=== PATIENT | male | born 1955 | race Caucasian/White ===

== ENCOUNTER 2017-12-15 18:44 | Emergency (ER) | payer BC ==
[2017-12-15 18:51] VITALS: BP 130/69
[2017-12-15] MEDS ORDERED: Diphtheria,Pertussis(Acell),Tetanus Vaccine 0.5 ML Syringe IM ONE (19:07)
--- NOTE | 2017-12-15 19:16 | EDM.PDOC ---
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) Location: Reports: Other (LEFT elbow) Quality: Reports: Ache, Throbbing Severity: Mild Associated Symptoms: Reports: No Other Symptoms Left Elbow Pain Score (Numeric/FACES): 2 - Related Data Allergies Allergy/AdvReac Type Severity Reaction Status Date / Time No Known Allergies Allergy Verified 12/15/17 18:50 Home Meds: Home Meds Allopurinol [Zyloprim] 300 mg PO DAILY 05/16/15 [History] Simvastatin [Zocor] 10 mg PO DAILY 04/08/17 [History] Aspirin [Halfprin] 81 mg PO DAILY 12/15/17 [History] Past Medical History Cardiovascular History: Reports: High Cholesterol Musculoskeletal History: Reports: Gout Social & Family History - Tobacco Use Smoking Status *Q: Never Smoker - Living Situation & Occupation Living situation: Reports: Occupation: Other Review of Systems - Review of Systems Review Of Systems: See Below Constitutional: Reports: No Symptoms Musculoskeletal: Reports: Other (Patient reports a metal gate struck his LEFT elbow causing an abrasion and mild pain. He denies other injuries or concerns.) ED EXAM, GENERAL - Physical Exam Exam: See Below General Appearance: Alert, WD/WN, No Apparent Distress Respiratory/Chest: No Respiratory Distress, No Accessory Muscle Use Cardiovascular: Normal Peripheral Pulses, Regular Rate, Rhythm Extremities: Other (There is a small abrasion on the posterior elbow with associated soft tissue swelling. Pulse + 2 distally. Strength is preserved on flexion and extension against resistance. There is no deformity, crepitis, other significant signs of gross trauma. No wrist or elbow pain. MSK otherwise unremarkable.) Course - Vital Signs Last Recorded V/S: Last Vital Signs Temp 36.9 C 12/15/17 18:44 Pulse 83 12/15/17 18:44 Resp 20 12/15/17 18:44 BP 130/69 12/15/17 18:44 Pulse Ox 96 12/15/17 18:44 - Orders/Labs/Meds Orders: Active Orders 24 hr Category Date Time Status Vaccines to be Administered [RC] PER UNIT ROUTINE Care 12/15/17 19:07 Active Elbow Min 3V Lt [CR] Stat Exams 12/15/17 18:49 Ordered Meds: Medications Discontinued Medications Generic Name Dose Route Start Last Admin Trade Name Eliz PRN Reason Stop Dose Admin Diphtheria/Tetanus/Acell Pertussis 0.5 ml 12/15/17 19:07 Adacel IM 12/15/17 19:08 .ONCE ONE Departure - Departure Time of Disposition: 19:15 Disposition: Home, Self-Care 01 Clinical Impression: Elbow pain, left - Discharge Information Instructions: Joint Pain, [id number], Cryotherapy, Heat Therapy, Musculoskeletal Pain - My Orders Last 24 Hours: My Active Orders 12/15/17 18:49 Elbow Min 3V Lt [CR] Stat 12/15/17 19:07 Vaccines to be Administered [RC] PER UNIT ROUTINE - Assessment/Plan Last 24 Hours: My Active Orders 12/15/17 18:49 Elbow Min 3V Lt [CR] Stat 12/15/17 19:07 Vaccines to be Administered [RC] PER UNIT ROUTINE
== END 2017-12-15 19:20 | disposition home or self-care (01) ==
LOC: CC.ED 18:44
DX: M25.522 Pain in left elbow (principal); E78.00 Pure hypercholesterolemia, unspecified; Z23 Encounter for immunization; Z79.82 Long term (current) use of aspirin; Z79.899 Other long term (current) drug therapy
CPT/HCPCS: 73080-LT; 90471; 90715; 99283

== ENCOUNTER 2021-06-25 17:52 | Emergency (ER) | payer MEDICARE, BC ==
[2021-06-25 18:09] VITALS: BP 127/87; PULSE 79
[2021-06-25] MEDS ORDERED: Take Home: Codeine/Promethazine 10-6.25 MG/5 ML Syrup 5 ML, 2 Cup Pack PO ONE (18:17)
--- NOTE | 2021-06-26 10:50 | EDM.PDOC ---
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 He denies fevers, sputum, body aches, headache, sinus congestion, ear pain or shortness of breath. He has been sucking on cough drops and his suggested cold medications that he picked up . He is fully vaccinated against covid 19 with his booster on 05/13/21. His was asked to wait in the vehicle per hospital rules for covid rule out. Patient states he has a remote history of ' bronchitis or pneumonia" but never hospitalized for it. Is not a smoker, no lung disease. he is here for something better for cough and wondering if he needs antibiotics Onset Date: 06/24/21 Duration: Intermittent - Related Data Allergies Allergy/AdvReac Type Severity Reaction Status Date / Time No Known Allergies Allergy Verified 12/15/17 18:50 Home Meds: Home Meds allopurinoL [Zyloprim] 300 mg PO DAILY 05/16/15 [History] Simvastatin [Zocor] 10 mg PO DAILY 04/08/17 [History] Aspirin [Halfprin] 81 mg PO DAILY 12/15/17 [History] Benzonatate [Tessalon Perles] 100 mg PO TID PRN #30 cap 06/25/21 [Rx] Past Medical History Cardiovascular History: Reports: High Cholesterol Musculoskeletal History: Reports: Gout Social & Family History - Tobacco Use Tobacco Use Status *Q: Never Tobacco User - Caffeine Use Caffeine Use: Reports: Coffee - Recreational Drug Use Recreational Drug Use: No - Living Situation & Occupation Living situation: Reports: Occupation: Other ED ROS GENERAL - Review of Systems Review Of Systems: See Below Constitutional: Denies: Fever, Chills, Malaise, Weakness, Fatigue, Decreased Appetite HEENT: Reports: Other (no throat pain but ' tickle", swallows fine). Denies: Ear Discharge, Ear Pain, Nose Pain, Rhinitis, Sinus Problem, Throat Pain, Throat Swelling Respiratory: Reports: Cough. Denies: Shortness of Breath, Wheezing, Pleuritic Chest Pain Cardiovascular: Denies: Chest Pain, Dyspnea on Exertion, Edema, Lightheadedness Endocrine: Reports: No Symptoms GI/Abdominal: Reports: No Symptoms. Denies: Abdominal Pain, Black Stool, Bloody Stool, Constipation, Diarrhea : Reports: No Symptoms Musculoskeletal: Reports: No Symptoms. Denies: Muscle Pain Skin: Reports: No Symptoms Neurological: Reports: No Symptoms ED EXAM, GENERAL - Physical Exam Exam: See Below Exam Limited By: No Limitations General Appearance: Alert, WD/WN, No Apparent Distress Eye Exam: Bilateral Eye: EOMI, Normal Inspection, PERRL Ears: Normal External Exam Nose: Normal Inspection, Normal Mucosa Throat/Mouth: Normal Inspection, Normal Lips, Normal Teeth, Normal Voice, No Airway Compromise Head: Atraumatic Neck: Normal Inspection, Supple, Non-Tender, Full Range of Motion Respiratory/Chest: No Respiratory Distress, Lungs Clear, Normal Breath Sounds, No Accessory Muscle Use, Chest Non-Tender, Decreased Breath Sounds (right base minimally) Cardiovascular: Normal Peripheral Pulses, Regular Rate, Rhythm, No Edema GI/Abdominal: Normal Bowel Sounds Back Exam: Normal Inspection Extremities: Normal Inspection, Normal Range of Motion, Non-Tender, No Pedal Edema Neurological: Alert, Oriented, CN II-XII Intact Psychiatric: Normal Affect Course - Vital Signs Last Recorded V/S: Last Vital Signs Temp 36.5 C 06/25/21 17:55 Pulse 79 06/25/21 17:55 Resp 20 06/25/21 17:55 BP 127/87 06/25/21 17:55 Pulse Ox 95 06/25/21 17:55 - Orders/Labs/Meds Labs: Laboratory Tests 06/25/21 Range/Units 18:08 SARS CoV-2 RNA Rapid ELENI Negative (NEGATIVE) Meds: Medications Discontinued Medications Generic Name Dose Route Start Last Admin Trade Name Freq PRN Reason Stop Dose Admin Promethazine HCl/Codeine 2 packet 06/25/21 18:17 06/25/21 18:37 Take Home: Codeine/Promethazine 10-6.25 Mg/5 Ml Syrup 5 Ml, 2 Cup Pack PO 06/25/21 18:18 2 packet ONETIME ONE Administration - Re-Assessments/Exams Free Text/Narrative Re-Assessment/Exam: 06/26/21 10:52 discussion with the patient with normal vital signs, no tachypnea, no tachycardia, no fever and normal O2 sats with 36 hours of illness that is was highly unlikely he had a bacterial pneumonia that needed antibiotics. he was educated on viral URI, advised to closely follow his symptoms and if they worsen over the weekend to return tot he ED. otherwise if they persist, around day 5- 7 of symptoms he could be seen by PCP, retested for covid 19 given the rise of the new variant in fully vaccinated people and get a chest x-ray. 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 Advised to take vit c, d and zinc. note, his did call after he was discharged and discussed her disappointment with not being allowed in the facility. I explained the facility rules in a covid possible person. she then voiced her concern that he did not get an antibiotic. I did explain the same documented medical decision making with her. she stated she was going to text her local provider. I offered them return to the Ed at anytime. Departure - Departure Time of Disposition: 18:50 Disposition: Home, Self-Care 01 Condition: Good Clinical Impression: URI (upper respiratory infection), Cough - Discharge Information *PRESCRIPTION DRUG MONITORING PROGRAM REVIEWED*: Not Applicable *COPY OF PRESCRIPTION DRUG MONITORING REPORT IN PATIENT NASH: Not Applicable Prescriptions: Benzonatate [Tessalon Perles] 100 mg PO TID PRN #30 cap PRN Reason: Cough Instructions: Cough, Adult, [id number], Upper Respiratory Infection, Adult, [id number] Referrals: PCP,None [Primary Care Provider] - Forms: ED Department Discharge Additional Instructions: Take the cough medication give to you tonight, every 5 hours as needed for cough. 5 ml at a time. Fill the tessalon perrles and take one every 8 hours as needed for cough. if you are not improving in 3-4 days time, it is recommended that you repeat the covid/influenza test and get a possible chest x-ray. Viruses are the most likely cause of your throat tickle and cough and than after 5-7 days can turn into a bacteria pneumonia. Close follow up is recommended for this otherwise, zine, vitamin C and D are recommended, Sepsis Event Note (ED) - Evaluation Sepsis Screening Result: No Definite Risk
== END 2021-06-25 18:41 | disposition home or self-care (01) ==
LOC: CC.ED 17:52
DX: J06.9 Acute upper respiratory infection, unspecified (principal); E78.00 Pure hypercholesterolemia, unspecified; M10.9 Gout, unspecified; Z79.899 Other long term (current) drug therapy; Z20.822 Contact with and (suspected) exposure to COVID-19
CPT/HCPCS: 87430; 99283; A9270; U0002